=== PATIENT | male | born 1995 | race Caucasian/White ===

== ENCOUNTER → 2019-09-03 | Outpatient (CLI) | payer OTHER | LOC: MHCPAIN 12:13 | DX: M47.817 Spondylosis without myelopathy or radiculopathy, lumbosacral region (principal); M54.16 Radiculopathy, lumbar region | CPT/HCPCS: G0463 ==

== ENCOUNTER → 2019-09-17 | Outpatient (CLI) | payer OTHER | LOC: MHCPAIN 08:01 | DX: M54.31 Sciatica, right side (principal) | CPT/HCPCS: J1040 ==

== ENCOUNTER → 2019-10-07 | Outpatient (CLI) | payer OTHER | LOC: MHCPAIN 12:17 | DX: M99.04 Segmental and somatic dysfunction of sacral region (principal); M47.27 Other spondylosis with radiculopathy, lumbosacral region | CPT/HCPCS: G0463 ==